=== PATIENT | female | born 1985 | race Caucasian/White ===

== ENCOUNTER 2018-06-10 06:00 | Day surgery (SDC) | payer OTHER ==
[~2018-06-10] VITALS: Ht 172.7 cm; Wt 105.5 kg
[2018-06-10] MEDS ORDERED: ALBUTEROL SULFATE 2.5 MG/0.5 ML NEB SOLUTION NEB ONE (06:01)
[2018-06-10] MEDS ORDERED: LIDOCAINE 2% 5 ML JELLY TP ONE (06:01)
[2018-06-10] MEDS ORDERED: BENZOCAINE 20% 50 MCG/SPRAY 57 GM TP ONE (06:01)
[2018-06-10] MEDS ORDERED: LIDOCAINE 4% 50 ML SOLUTION TP ONE (06:01)
[2018-06-10] MEDS ORDERED: SODIUM CHLORIDE 0.9% 1,000 ML IV ONE ×2 (07:00→07:08)
[2018-06-10] MEDS ORDERED: MONT10TA21 PO (07:35)
[2018-06-10] MEDS ORDERED: IBUP-2071 PO (07:35)
[2018-06-10] MEDS ORDERED: OMEP20 PO (07:35)
[2018-06-10] MEDS ORDERED: VENL25TA47 PO (07:35)
[2018-06-10] MEDS ORDERED: FLUT16H NASAL (07:35)
[2018-06-10] MEDS ORDERED: DICL50TA9 PO (07:35)
[2018-06-10] MEDS ORDERED: MIDAZOLAM HCL 2 MG/2 ML VIAL ONE (07:47)
[2018-06-10] MEDS ORDERED: FentaNYL CITRATE-PF 100 MCG/2 ML VIAL ONE (07:47)
[2018-06-10] MEDS ORDERED: MethylPREDNISolone SOD SUCC 125 MG/2 ML VIAL IVP ONE (09:15)
[2018-06-10] MEDS ORDERED: OXYGEN THERAPY IH SCH (20:00)
== END 2018-06-10 11:00 | disposition home or self-care (01) ==
LOC: SURGERY 06:00
PROVIDERS: ATTEND Internal Medicine Critical Care Medicine
DX: J38.4 Edema of larynx (principal); B37.0 Candidal stomatitis; Z87.891 Personal history of nicotine dependence; Z88.2 Allergy status to sulfonamides; Z98.890 Other specified postprocedural states; Z91.040 Latex allergy status
CPT/HCPCS: 31623; 31624; 71045; 84703; 87015; 87070; 87101; 87205; 87206; 87220; J2250; J2930; J3010; J7030

== ENCOUNTER 2021-07-08 05:33 | Day surgery (SDC) | payer OTHER ==
[~2021-07-08] VITALS: Ht 175.3 cm; Wt 113.6 kg
[~2021-07-08 05:33] MED LIST: DICL-208 PO; FLUT16H NASAL; IBUP-2071 PO; MONT-35 PO; OMEP20 PO; VENL25TA47 PO
[2021-07-08] MEDS ORDERED: ALBUTEROL SULFATE 2.5 MG/0.5 ML NEB SOLUTION NEB ONE (05:34)
[2021-07-08] MEDS ORDERED: LIDOCAINE 2% 30 ML JELLY TP ONE (05:34)
[2021-07-08] MEDS ORDERED: BENZOCAINE 20% 50 MCG/SPRAY 57 GM TP ONE (05:34)
[2021-07-08] MEDS ORDERED: LIDOCAINE 4% 50 ML SOLUTION TP ONE (05:34)
[2021-07-08] MEDS ORDERED: SODIUM CHLORIDE 0.9% 1,000 ML IV ONE (06:30)
[2021-07-08] MEDS ORDERED: SODIUM CHLORIDE 0.9% 1,000 ML ONE (06:43)
[2021-07-08 06:45] LABS: COVID AG,FIA SOURCE NASOPHARYNGEAL
[2021-07-08] MEDS ORDERED: BECL10.6 IH (06:51)
[2021-07-08] MEDS ORDERED: CETI10TA58 PO (06:51)
[2021-07-08] MEDS ORDERED: ALBU90AE IH (06:51)
[2021-07-08] MEDS ORDERED: FentaNYL CITRATE PF 100 MCG/2 ML VIAL ONE (07:18)
[2021-07-08] MEDS ORDERED: MIDAZOLAM HCL 5 MG/ML VIAL ONE (07:19)
[2021-07-08] MEDS ORDERED: TRAZ-252 PO (07:38)
[2021-07-08] MEDS ORDERED: DEPOP150I IM (07:49)
[2021-07-08] MEDS ORDERED: MethylPREDNISolone SOD SUCC 125 MG/2 ML VIAL IVP ONE (09:15)
[2021-07-08] MEDS ORDERED: MethylPREDNISolone SOD SUCC 125 MG/2 ML VIAL ONE (09:18)
[2021-07-08] MEDS ORDERED: OXYGEN THERAPY IH SCH (20:00)
== END 2021-07-08 10:25 | disposition home or self-care (01) ==
LOC: SURGERY 05:33
PROVIDERS: ATTEND Internal Medicine Critical Care Medicine
DX: J38.4 Edema of larynx (principal); B37.0 Candidal stomatitis; J44.9 Chronic obstructive pulmonary disease, unspecified; Z88.2 Allergy status to sulfonamides; F17.210 Nicotine dependence, cigarettes, uncomplicated; Z90.49 Acquired absence of other specified parts of digestive tract; Z98.890 Other specified postprocedural states; Z87.01 Personal history of pneumonia (recurrent)
CPT/HCPCS: 31623; 31624; 71045; 87015; 87070; 87101; 87206; 87220; 87426; 88112; 88184; 88185; 88312; C9803; J2250; J2930; J3010; J7030; J7613; Z7610